=== PATIENT | male | born 1985 | race Caucasian/White ===

== ENCOUNTER → 2020-11-09 | Outpatient (CLI) | payer OTHER ==
[~2020-11-09] MED LIST: ADDERALL XR 3030 MG PO; GABAPENTIN100 MG PO; SERTRALINE HCL100 MG PO
== END ==
LOC: KOH-I 10:24
DX: M54.41 Lumbago with sciatica, right side (principal); M43.17 Spondylolisthesis, lumbosacral region
CPT/HCPCS: 72100

== ENCOUNTER → 2021-01-12 | Outpatient (CLI) | payer OTHER | LOC: KOH-I 14:30 | DX: M54.30 Sciatica, unspecified side (principal); M43.17 Spondylolisthesis, lumbosacral region; M51.26 Other intervertebral disc displacement, lumbar region; M48.07 Spinal stenosis, lumbosacral region | CPT/HCPCS: 72148 ==

== ENCOUNTER → 2021-01-17 | Outpatient (CLI) | payer OTHER | LOC: KOH-I 08:30 | DX: M43.16 Spondylolisthesis, lumbar region (principal); M48.07 Spinal stenosis, lumbosacral region | CPT/HCPCS: 72131 ==

== ENCOUNTER → 2021-02-01 | Outpatient (CLI) | payer OTHER ==
[2021-02-01 10:36] LABS: HEMOGLOBIN 15.6 gm/dl (14.0-17.5); RED BLOOD COUNT 4.97 M/UL (4.20-5.50); WHITE BLOOD COUNT 7.2 K/UL (4.5-11.0)
[2021-02-01 10:52] LABS: BUN/CREATININE RATIO 20 (0-10)
== END ==
LOC: OPSV2 08:30 → EDSTATUS 08:30 → OPSV2 09:13
PROVIDERS: Orthopaedic Surgery
DX: Z01.818 Encounter for other preprocedural examination (principal); M43.17 Spondylolisthesis, lumbosacral region
CPT/HCPCS: 36415; 71046; 80048; 81001; 85027; 85610; 85730; 87081; 87086; 93005

== ENCOUNTER → 2021-08-14 | Outpatient (CLI) | payer OTHER | LOC: MRI 14:00 | DX: R22.31 Localized swelling, mass and lump, right upper limb (principal) | CPT/HCPCS: 73220; A9577 ==